=== PATIENT | female | born 1955 | race Caucasian/White ===

== ENCOUNTER 2024-06-15 23:02 | Emergency (ER) | payer MEDICARE, OTHER | END 2024-06-16 00:29 | disposition home or self-care (01) | LOC: FB.ED 23:02 | DX: S93.601A Unspecified sprain of right foot, initial encounter (principal); X58.XXXA Exposure to other specified factors, initial encounter | CPT/HCPCS: 73630-RT; 99283 ==

== ENCOUNTER 2025-04-02 20:02 | Emergency (ER) | payer MEDICARE, OTHER ==
[2025-04-02 20:27] LABS: GLUCOSE,URINE NORMAL (NORMAL); OCCULT BLOOD,URINE MODERATE (NEGATIVE)
[2025-04-02 20:28] LABS: APPEARANCE,URINE CLEAR (CLEAR)
[2025-04-02 20:30] LABS: SQUAMOUS EPITHELIAL CELLS,UR FEW (NS,R,O)
== END 2025-04-02 20:40 | disposition home or self-care (01) ==
LOC: FB.ED 20:02
DX: N39.0 Urinary tract infection, site not specified (principal); I10 Essential (primary) hypertension
CPT/HCPCS: 81001; 87086; 99283; A9270